=== PATIENT | female | born 1995 | race Caucasian/White ===

== ENCOUNTER 2017-05-09 16:26 | Emergency (ER) | payer OTHER ==
[2017-05-09 16:42] VITALS: TEMP 97.9; BMI 24.4
--- NOTE | 2017-05-09 16:42 | PDOC ---
Rapid Medical Evaluation Medical Evaluation: Allergies Allergy/AdvReac Type Severity Reaction Status Date / Time No Known Allergies Allergy Verified 09/15/13 03:56 05/09/17 16:35 I performed a brief in-person evaluation of this patient. The patient presents with a chief complaint of: intermittent pelvic pain with spotting for past 2 weeks. Patient had mirena in removed it herself 2 days ago, since then pelvic pain and heavy vaginal bleeding. Took no medication so far today Pertinent physical exam findings: NAD unlabored breathing mild tenderness over mid suprapubis I have ordered the following: urine cbc with diff analgesia The patient will proceed to the Ed for further evaluation <Fany Martinez - Last Filed: 05/09/17 16:35> Medical Evaluation: Allergies Allergy/AdvReac Type Severity Reaction Status Date / Time acetaminophen [From Vicodin] Allergy Rash Verified 05/09/17 16:40 hydrocodone bitartrate Allergy Rash Verified 05/09/17 16:40 [From Vicodin] Vital Signs Temp Pulse Resp BP Pulse Ox 97.9 F 74 19 111/61 100 05/09/17 16:40 05/09/17 16:40 05/09/17 16:40 05/09/17 16:40 05/09/17 16:40 <Divya Kim - Last Filed: 05/09/17 17:52> Time Seen by Provider: 05/09/17 16:34 Discharge Disposition <Fany Martinez - Last Filed: 05/09/17 16:35> <Divya Kim - Last Filed: 05/09/17 17:52> - Referrals Referrals: Zahira Zhou MD [Primary Care Provider] - - Patient Instructions - Post Discharge Activity
[2017-05-09 17:00] LABS: BASOPHIL 0.2 % (0-2.0); EOSINOPHIL 3.7 % (0-4.5); MCH 29.6 pg (25.7-33.7); MCHC 33.2 g/dl (32.0-36.0); MEAN CELL VOLUME 89.2 fl (80-96); MEAN PLT VOLUME 9.1 fl (7.5-11.1); NEUTROPHILS 52.5 % (42.8-82.8); PLATELET COUNT 214 K/MM3 (134-434); WHITE BLOOD COUNT 4.5 K/mm3 (4.0-10.0)
[2017-05-09 17:29] LABS: URINE APPEARANCE TURBID; URINE BILIRUBIN NEGATIVE (NEGATIVE); URINE BLOOD 3+ (NEGATIVE); URINE COLOR RED; URINE GLUCOSE (UA) NEGATIVE (NEGATIVE); URINE KETONE NEGATIVE (NEGATIVE); URINE NITRITE NEGATIVE (NEGATIVE); URINE UROBILINOGEN NEGATIVE mg/dL (0.2-1.0)
[2017-05-09 17:38] LABS: URINE PROTEIN 2+ (NEGATIVE)
--- NOTE | 2017-05-09 18:04 | PDOC ---
History of Present Illness - General Chief Complaint: Vaginal Bleeding Stated Complaint: PAIN,VAG. BLEEDING Time Seen by Provider: 05/09/17 16:34 History Source: Patient Exam Limitations: No Limitations - History of Present Illness Initial Comments: This is a 22 YOF with complex medical history of PCOS (Mirena IUD placed 1.5 years ago to regular hormones), uterine fibroids, newly diagnosed brain lesion which is being worked up currently, sleeve gastrectomy, liver disease, lumbar spinal surgery and bulging discs, asthma, anxiety, and depression who p/w heavy bright red vaginal bleeding for the past day. She is concerned that she soaked a whole pack of large panty liners last night (#40). She pulled out her own IUD two days ago because she has been experiencing suprapubic pain over the past two weeks and was not going to be able to see her PCP until Friday. She had no bleeding immediately subsequent to pulling it out, and she actually had relief of her suprapubic pain after pulling it out (from 7/10 for the past 2 weeks to 5 /10 after removal). The suprapubic pain feels like cramping with sharp twinges and radiates to her left back. She has taken Tylenol without relief. She additionally has had lightheadedness, hematuria, and nausea, but she denies any fever, chills, vomiting, cough, sore throat, or other symptoms. She has unchanged baseline vaginal discharge for which she always uses panty liners. Past History - Past Medical History Allergies/Adverse Reactions: Allergies Allergy/AdvReac Type Severity Reaction Status Date / Time acetaminophen [From Vicodin] Allergy Rash Verified 05/09/17 16:40 hydrocodone bitartrate Allergy Rash Verified 05/09/17 16:40 [From Vicodin] Home Medications: Ambulatory Orders Albuterol Sulfate Inhaler - [Ventolin Hfa *Inhaler*] 1 - 2 inh IH PRN PRN Escitalopram Oxalate [Lexapro] 20 mg PO DAILY 06/08/12 Esomeprazole Mag Trihydrate [Nexium] 40 mg PO DAILY 06/08/12 Hydroxyzine Pamoate [Vistaril] 25 mg PO DAILY 06/08/12 Salmeterol/Fluticasone [Advair 500Mcg/50Mcg] 1 inh PO BID 06/08/12 Oxymetazoline HCl [Afrin] 15 ml NS DAILY #1 spray 09/15/13 Budesonide/Formeterol Fumarate [SYMBICORT 80/4.5mcg -] 1 inh PO DAILY 05/09/17 Cephalexin Monohydrate [Keflex -] 500 mg PO BID 5 Days #10 capsule 05/09/17 Clonazepam [Klonopin -] 4 mg PO DAILY 05/09/17 Gabapentin 100 mg PO DAILY 05/09/17 Loratadine [Claritin] 10 mg PO DAILY 05/09/17 Lovastatin 40 mg PO DAILY 05/09/17 Metoprolol Tartrate 12.5 mg PO DAILY 05/09/17 Oxycodone HCl/Acetaminophen [Percocet 5-325 mg Tablet] 1 tab PO Q4H PRN #3 tablet MDD 1 05/09/17 Quetiapine Fumarate [Seroquel] 250 mg PO DAILY 05/09/17 Topiramate [Topamax] 100 mg PO DAILY 05/09/17 Zolpidem Tartrate [Ambien] 10 mg PO HS 05/09/17 Cardiac Disorders: Yes (mitral valve prolapse) - Immunization History Immunization Up to Date: Yes - Suicide/Smoking/Psychosocial Hx Smoking Status: No Smoking History: Never smoked Number of Cigarettes Smoked Daily: 1 Review of Systems - Review of Systems Constitutional: No: Chills, Fever, Unexplained wgt Loss HEENTM: No: Nose Congestion, Throat Pain Respiratory: No: Cough, Shortness of Breath Cardiac (ROS): No: Chest Pain, Palpitations ABD/GI: Yes: Diarrhea (chronic), Nausea. No: Constipated, Vomiting : Yes: Hematuria, Other (vaginal bleeding). No: Burning, Dysuria Musculoskeletal: Yes: Back Pain (left lower). No: Neck Pain Integumentary: No: Bruising, Rash Neurological: Yes: Dizziness (lightheaded). No: Headache, Numbness, Tingling, Weakness Endocrine: No: Unexplained Weight Gain, Unexplained Weight Loss *Physical Exam - Vital Signs Last Vital Signs Temp Pulse Resp BP Pulse Ox 97.9 F 74 19 111/61 100 05/09/17 16:40 05/09/17 16:40 05/09/17 16:40 05/09/17 16:40 05/09/17 16:40 - Physical Exam General Appearance: Yes: Nourished, Appropriately Dressed, Mild Distress, Other (anxious but pleasant young adult female who is in mild distress worsened with repositioning, accompanied by her mother who is very attentive, patient answers appropriately but does become confused with some questions such as medication and medical history, also becomes overwhelmed when multiple staff members are present for interview but converses well with one interviewer) HEENT: positive: EOMI, RANJEET, Normal ENT Inspection, Normal Voice, Hearing Grossly Normal, Other (multiple facial piercings). negative: Pale Conjunctivae , Scleral Icterus (R), Scleral Icterus (L), Nasal Congestion Neck: positive: Trachea midline, Supple. negative: Tender, Rigid Respiratory/Chest: positive: Lungs Clear, Normal Breath Sounds, Other (multiple tattoos to anterior chest wall). negative: Respiratory Distress, Crackles, Rhonchi, Stridor, Wheezing Cardiovascular: positive: Regular Rhythm, Regular Rate. negative: Edema, JVD, Murmur, Tachycardia, Systolic Murmur Female Pelvic Exam: positive: cervical os closed, adnexal tenderness (bilateral) , vaginal bleeding (moderate amount of medium-red blood without clots), other ( adnexal fullness on bimanual exam). negative: CMT, discharge, lesions Gastrointestinal/Abdominal: positive: Normal Bowel Sounds, Soft. negative: Tender, Organomegaly, Pulsatile Mass, Guarding Musculoskeletal: positive: Normal Inspection. negative: Decreased Range of Motion, Vertebral Tenderness Extremity: positive: Normal Capillary Refill, Normal Inspection, Normal Range of Motion. negative: Tender, Cyanosis Integumentary: positive: Normal Color, Dry, Warm. negative: Erythema, Rash, Bruising Neurologic: positive: law examiner II-XII NML intact (grossly), Fully Oriented, Alert, Normal Mood/Affect, Normal Response, Motor Strength 5/5 ED Treatment Course - LABORATORY CBC & Chemistry Diagram: 05/09/17 16:50 - ADDITIONAL ORDERS Additional order review: Laboratory Results 05/09/17 05/09/17 17:10 17:10 Urine Color Red Urine Appearance Turbid Urine pH 7.0 D Ur Specific [place] 1.018 Urine Protein 2+ H Urine Glucose (UA) Negative Urine Ketones Negative Urine Blood 3+ H Urine Nitrite Negative Urine Bilirubin Negative Urine Urobilinogen Negative Urine HCG, Qual Negative 05/09/17 16:50 RBC 4.45 MCV 89.2 MCHC 33.2 RDW 14.0 MPV 9.1 Neutrophils % 52.5 Lymphocytes % 36.0 D Monocytes % 7.6 Eosinophils % 3.7 Basophils % 0.2 Medical Decision Making - Medical Decision Making 22 YOF with PCOS and uterine fibroid who pulled her IUD out 2d ago and has heavy vaginal bleeding and abdominal pain. On exam she has suprapubic tenderness, on pelvic she has moderate blood, os closed, no obvious cervical injury. +Adnexal fullness and tenderness bilaterally but no CMT. DDX IBNLT cervical injury, fibroid bleeding, menorrhagia with dysmenorrhea, UTI with hematuria, PID, etc. Ordered is UA cx, CBCD, CMP, cervical swab cultures, hCG. 05/09/17 18:45 Blood labs are non-directive, hCG negative, patient is not anemic. Urine notable for blood and protein, awaiting micro. Based on pelvic exam adnexal tenderness and fullness will order pelvic US. Patient's care is signed out to Dr. Layne at the end of my shift. *DC/Admit/Observation/Transfer Diagnosis at time of Disposition: Cystitis - Discharge Dispostion Disposition: HOME Condition at time of disposition: Improved Admit: No - Prescriptions Prescriptions: Cephalexin Monohydrate [Keflex -] 500 mg PO BID 5 Days #10 capsule Oxycodone HCl/Acetaminophen [Percocet 5-325 mg Tablet] 1 tab PO Q4H PRN #3 tablet MDD 1 PRN Reason: abdominal pain - Referrals Referrals: Zahira Zhou MD [Primary Care Provider] - - Patient Instructions Additional Instructions: We believe that you may have an infection of your urine as your ultrasound didn' t show anything else concerning. The bleeding from your vagina was most likely from your IUD that you pulled out. Please follow up with your fire control assistant to have it evaluated further. Please return to the ED if your pain gets worse despite the use of the keflex antibiotics. Please take half of a percocet every 4-6 hours as needed and take your Keflex twice per day for the next 5 days. - Post Discharge Activity
--- NOTE | 2017-05-09 18:05 | PDOC ---
Attending Attestation - HPI HPI: 05/09/17 18:32 22 y.o female, with significant past medical history of PCOS, uterine fibroids, sleeve gastrectomy, anxiety, depression, insomnia, who presents to the emergency room complaining of 1 day of heavy vaginal bleeding s/p self-removal of Mirena device 2 days ago. <Mami Conklin - Last Filed: 05/09/17 18:32> - Resident Resident Name: Divya Kim - ED Attending Attestation I have performed the following: I have examined & evaluated the patient, The case was reviewed & discussed with the resident, I agree w/resident's findings & plan, Exceptions are as noted - Physicial Exam PE: 05/09/17 23:28 Patient is awake and alert, well-nourished, afebrile, hemodynamically stable EXAMINATION CONSTITUTIONAL: Well-appearing; well-nourished; in no apparent distress EYES: PERRL; EOM intact ENMT: External appears normal; normal oropharynx NECK: Supple; non-tender; no cervical lymphadenopathy CARD: Normal S1, S2; no murmurs, rubs, or gallops RESP: Normal chest excursion with respiration; breath sounds clear and equal bilaterally; no wheezes, rhonchi, or rales ABD: Soft, non-distended; + mild to moderate left lower quadrant and suprapubic tenderness to palpation, minimal right lower pelvic tenderness to palpation without guarding or rebound; obturator/psoas signs are negative, Rovsing sign is negative, there is no CVA tenderness bilaterally, no palpable organomegaly, no palpable hernias EXT: Normal ROM in all four extremities; non-tender to palpation; distal pulses intact SKIN: Warm, dry, no rash NEURO: No focal neurological deficiencies. - Medical Decision Making 05/09/17 23:30 Patient is a 22-year-old female with history of PTSD, depression, anxiety, insomnia presents the ER with vaginal bleeding and lower abdominal pain after removing her IUD. Patient also endorses history of urinary frequency over the past week. In the ER, patient is afebrile and nontoxic appearing. CBC is within normal limit without evidence of leukocytosis. Urinalysis reveals numerous wbc' s and more than 2000 RBCs. Transvaginal ultrasound shows thickened endometrial stripe and bilateral ovarian follicles without evidence of torsion or TOA. I suspect cystitis. Patient is unlikely to have acute appendicitis or PID at this time. GC/chlamydia probe is pending. We'll administer Keflex will discharge with by mouth Keflex for treatment of suspected cystitis. Will give abdominal pain precautions. <Parish Almaraz - Last Filed: 05/09/17 23:32>
[2017-05-09 18:43] VITALS: BP 108/50; PULSE 59
[2017-05-09 18:45] LABS: CALCIUM OXALATE CRYSTALS MANY /hpf (NONE SEEN); URINE BACTERIA MODERATE /hpf (NONE SEEN); URINE RBC 2434 /hpf (0-3); URINE WBC 144 /hpf (3-5)
[2017-05-09 19:26] LABS: URINE LEUK ESTERASE Negative (NEGATIVE)
[2017-05-09] MEDS ORDERED: KETOROLAC TROMETHAMINE 15 MG/ML VIAL IVPUSH ONE (21:02)
[2017-05-09] MEDS ORDERED: KETOROLAC TROMETHAMINE 15 MG/ML VIAL ONE (21:09)
--- NOTE | 2017-05-09 22:06 | PDOC ---
*Physical Exam - Vital Signs Last Vital Signs Temp Pulse Resp BP Pulse Ox 97.9 F 59 L 18 108/50 100 05/09/17 16:40 05/09/17 18:30 05/09/17 18:30 05/09/17 18:30 05/09/17 18:30 ED Treatment Course - LABORATORY CBC & Chemistry Diagram: 05/09/17 16:50 - ADDITIONAL ORDERS Additional order review: Laboratory Results 05/09/17 05/09/17 17:10 17:10 Urine Color Red Urine Appearance Turbid Urine pH 7.0 D Ur Specific [place] 1.018 Urine Protein 2+ H Urine Glucose (UA) Negative Urine Ketones Negative Urine Blood 3+ H Urine Nitrite Negative Urine Bilirubin Negative Urine Urobilinogen Negative Ur Leukocyte Esterase Negative Urine WBC (Auto) 144 Urine RBC (Auto) 2434 Ur Epithelial Cells Few Calcium Oxalate Crystal Many Urine Bacteria Moderate Urine HCG, Qual Negative 05/09/17 16:50 RBC 4.45 MCV 89.2 MCHC 33.2 RDW 14.0 MPV 9.1 Neutrophils % 52.5 Lymphocytes % 36.0 D Monocytes % 7.6 Eosinophils % 3.7 Basophils % 0.2 - Medications Given in the ED: ED Medications Discontinued Medications Generic Name Dose Route Start Last Admin Trade Name Freq PRN Reason Stop Dose Admin Ketorolac Tromethamine 15 mg 05/09/17 21:02 05/09/17 21:17 Toradol Injection - IVPUSH 05/09/17 21:03 15 mg ONCE ONE Administration Medical Decision Making - Medical Decision Making Abdominal US negative and lower abdominal pain has improved since admission. Her abdominal pain is most likely secondary to cystitis given her suprapubic tenderness. No RLQ tenderness, not concerned for appendicitis. Wrote for 500 Keflex BID and 3 percocet 5 that she is instructed to split in half. I discussed the findings with the patient and she agrees that she will follow up with her deputy chief sheriff in a few days. 05/09/17 21:51 *DC/Admit/Observation/Transfer Diagnosis at time of Disposition: Cystitis - Discharge Dispostion Disposition: HOME Condition at time of disposition: Improved Admit: No - Prescriptions Prescriptions: Cephalexin Monohydrate [Keflex -] 500 mg PO BID 5 Days #10 capsule Oxycodone HCl/Acetaminophen [Percocet 5-325 mg Tablet] 1 tab PO Q4H PRN #3 tablet MDD 1 PRN Reason: abdominal pain - Referrals Referrals: Zahira Zhou MD [Primary Care Provider] - - Patient Instructions Additional Instructions: We believe that you may have an infection of your urine as your ultrasound didn' t show anything else concerning. The bleeding from your vagina was most likely from your IUD that you pulled out. Please follow up with your deputy chief sheriff to have it evaluated further. Please return to the ED if your pain gets worse despite the use of the keflex antibiotics. Please take half of a percocet every 4-6 hours as needed and take your Keflex twice per day for the next 5 days. - Post Discharge Activity
[2017-05-09] MEDS ORDERED: CEPHALEXIN MONOHYDRATE 500 MG CAPSULE (UD) PO ONE (22:18)
[2017-05-09] MEDS ORDERED: CEPHALEXIN MONOHYDRATE 250 MG CAPSULE (FP) ONE (22:29)
== END 2017-05-09 22:56 | disposition home or self-care (01) ==
LOC: JER 16:26
PROC: 3E0333Z Introduction of Anti-inflammatory into Peripheral Vein, Percutaneous Approach (ICD-10-PCS; principal; 2017-05-09)
DX: N30.01 Acute cystitis with hematuria (principal); F41.8 Other specified anxiety disorders; F43.10 Post-traumatic stress disorder, unspecified; G47.00 Insomnia, unspecified
CPT/HCPCS: 36415; 76830-TC; 76856-TC; 81003; 81015; 84703; 85025; 87491; 87591; 87661; 96374; 99282-25

== ENCOUNTER 2018-02-23 13:08 | Emergency (ER) | payer OTHER ==
[2018-02-23 13:18] VITALS: TEMP 98.6; BMI 28.8
--- NOTE | 2018-02-23 14:01 | PDOC ---
Attending Attestation - HPI HPI: Patient is a 23 year old female, with a PMHx of PCOS, uterine fibroids, ectopic pregnancies, sleeve gastrectomy, anxiety, depression, insomnia, who presents with 2 days of lower pelvic and suprabic pain. Patient states that she feels what she describes as a "tight" sensation when she pees with light tripathi-tinged spotting, states her pain is worse when bending over, and rates 10/10. Patient also notes that back in September of 2017, she had an IUD placement in [facility]. Patient notes that her LMP was January 19 and states her period is late. She is concerned about a possible ectopic. She denies any burning or itching when she urinates. <Katherine Patino - Last Filed: 02/23/18 14:54> - Resident Resident Name: Shashi Krishnan - ED Attending Attestation I have performed the following: I have examined & evaluated the patient, The case was reviewed & discussed with the resident, I agree w/resident's findings & plan, Exceptions are as noted - Physicial Exam PE: 02/23/18 16:05 Agree with residents PE - Medical Decision Making 02/23/18 16:07 23 years old past medical history significant for PCO S uterine fibroids ectopic sleeve gastrectomy anxiety depression and insomnia presents with 2 day history of lower pelvic pain. Benign abdominal examination. Patient not transvaginal ultrasound with no acute pathology noted Now patient requesting HIV examination as well as testing for GC chlamydia and BV We'll send out cultures HIV rapid await results and dispo to follow-up with her GYN PHYSICIAN. <Jayro Bocanegra - Last Filed: 02/23/18 16:07>
[2018-02-23] MEDS ORDERED: ACETAMINOPHEN 500 MG TABLET (FP) PO ONE (14:10)
[2018-02-23 14:32] LABS: BASO % 0.6 % (0-2.0); EOS % 3.7 % (0-4.5); HEMATOCRIT 39.8 % (32.4-45.2); LYMPH % 45.5 % (8-40); MCH 28.4 pg (25.7-33.7); MCHC 32.8 g/dl (32.0-36.0); MEAN CELL VOLUME 86.6 fl (80-96); MEAN PLT VOLUME 9.1 fl (7.5-11.1); MONO % 7.9 % (3.8-10.2); NEUT % 42.3 % (42.8-82.8); PLATELET COUNT 224 K/MM3 (134-434); RBC 4.59 M/mm3 (3.60-5.2); RDW 16.2 % (11.6-15.6); WHITE BLOOD COUNT 6.5 K/mm3 (4.0-10.0)
[2018-02-23] MEDS ORDERED: ACETAMINOPHEN 325 MG TABLET (FP) ONE (14:32)
[2018-02-23 14:42] LABS: HCG,QUALITATIVE URINE Negative
[2018-02-23 14:49] LABS: URINE APPEARANCE CLOUDY; URINE BILIRUBIN NEGATIVE (<2.0 mg/dL); URINE COLOR YELLOW; URINE GLUCOSE (UA) NEGATIVE (NEGATIVE); URINE KETONE NEGATIVE (NEGATIVE); URINE LEUK ESTERASE NEGATIVE (NEGATIVE); URINE NITRITE POSITIVE (NEGATIVE); URINE PROTEIN NEGATIVE (NEGATIVE); URINE UROBILINOGEN NEGATIVE mg/dL (0.2-1.0)
[2018-02-23 14:53] LABS: ALBUMIN 4.1 g/dl (3.4-5.0); ANION GAP 6 MMOL/L (8-16); BILIRUBIN,TOTAL 0.4 mg/dL (0.2-1.0); BLOOD UREA NITROGEN 17 mg/dL (7-18); CALCIUM 8.9 mg/dL (8.5-10.1); CHLORIDE 110 mmol/L (98-107); CO2 26 mmol/L (21-32); CREATININE 0.9 mg/dL (0.55-1.3); GLUCOSE,RANDOM 87 mg/dL (74-106); POTASSIUM 4.1 mmol/L (3.5-5.1); SGOT/AST 17 U/L (15-37); SGPT/ALT 26 U/L (13-61); SODIUM 142 mmol/L (136-145)
[2018-02-23 14:54] LABS: ALK PHOS 84 U/L (45-117)
[2018-02-23 15:07] LABS: EPI CELLS RARE /HPF (FEW); URINE BACTERIA RARE /hpf (NONE SEEN); URINE MUCUS RARE; YEAST RARE
--- NOTE | 2018-02-23 16:38 | PDOC ---
History of Present Illness - General Chief Complaint: Pain Stated Complaint: ABDOMINAL PAIN Time Seen by Provider: 02/23/18 13:33 History Source: Patient, Old Records Exam Limitations: No Limitations - History of Present Illness Initial Comments: 23 y/o female presenting to [facility] ER via private auto complaining of two days of bilateral lower abdominal and suprapubic pain. Pt states the pain is constant and made worse by bending at the waist. Initially concerned it was menstrual cramping but denies active bleeding. Reports a h/o ectopic with IUD in place in 2016. Had second progesterone eluting IUD placed earlier this year by [facility]. Thinks the strings may be shorter today. Denies dysuria, urgency, frequency, hematuria, or vaginal discharge. No N /V/D. Pt is in a new monogamous sexual relationship with male partner. Requests STD check. Past History - Past Medical History Allergies/Adverse Reactions: Allergies Allergy/AdvReac Type Severity Reaction Status Date / Time acetaminophen [From Vicodin] Allergy Rash Verified 02/23/18 13:12 hydrocodone bitartrate Allergy Rash Verified 02/23/18 13:12 [From Vicodin] Home Medications: Ambulatory Orders Albuterol Sulfate Inhaler - [Ventolin Hfa *Inhaler*] 1 - 2 inh IH PRN PRN Escitalopram Oxalate [Lexapro] 20 mg PO DAILY 06/08/12 Esomeprazole Mag Trihydrate [Nexium] 40 mg PO DAILY 06/08/12 Salmeterol/Fluticasone [Advair 500Mcg/50Mcg] 1 inh PO BID 06/08/12 hydrOXYzine PAMOATE [Vistaril] 25 mg PO DAILY 06/08/12 Oxymetazoline HCl [Afrin] 15 ml NS DAILY #1 spray 09/15/13 Budesonide/Formeterol Fumarate [SYMBICORT 80/4.5mcg -] 1 inh PO DAILY 05/09/17 Cephalexin Monohydrate [Keflex -] 500 mg PO BID 5 Days #10 capsule 05/09/17 Gabapentin 100 mg PO DAILY 05/09/17 Loratadine [Claritin] 10 mg PO DAILY 05/09/17 Lovastatin 40 mg PO DAILY 05/09/17 Metoprolol Tartrate 12.5 mg PO DAILY 05/09/17 Oxycodone HCl/Acetaminophen [Percocet 5-325 mg Tablet] 1 tab PO Q4H PRN #3 tablet MDD 1 05/09/17 Quetiapine Fumarate [Seroquel] 250 mg PO DAILY 05/09/17 Topiramate [Topamax] 100 mg PO DAILY 05/09/17 Zolpidem Tartrate [Ambien] 10 mg PO HS 05/09/17 clonazePAM [Klonopin -] 4 mg PO DAILY 05/09/17 Cephalexin Monohydrate [Keflex -] 500 mg PO BID 5 Days #10 capsule 02/23/18 Phenazopyridine HCl [Pyridium -] 200 mg PO TID 2 Days #6 tablet 02/23/18 Asthma: Yes Cardiac Disorders: Yes (mitral valve prolapse) COPD: No - Immunization History Immunization Up to Date: Yes - Suicide/Smoking/Psychosocial Hx Smoking Status: No Smoking History: Never smoked Number of Cigarettes Smoked Daily: 1 Hx Alcohol Use: No Drug/Substance Use Hx: No Review of Systems - Review of Systems Able to Perform ROS?: Yes Is the patient limited Lithuanian proficient: No Constitutional: No: Chills, Diaphoresis, Fever HEENTM: No: Difficulty Swallowing Respiratory: No: Shortness of Breath Cardiac (ROS): No: Chest Pain, Syncope ABD/GI: Yes: See HPI, Abdominal cramping. No: Constipated, Diarrhea, Nausea, Rectal Bleeding, Vomiting, Tarry Stools : No: Burning, Dysuria, Discharge, Frequency, Flank Pain, Hematuria, Incontinence Musculoskeletal: No: Back Pain Integumentary: No: Bruising, Erythema Neurological: No: Weakness Hematologic/Lymphatic: No: Easy Bleeding, Easy Bruising *Physical Exam - Vital Signs Last Vital Signs Temp Pulse Resp BP Pulse Ox 98.6 F 89 18 116/59 99 02/23/18 13:12 02/23/18 13:12 02/23/18 13:12 02/23/18 13:12 02/23/18 13:12 - Physical Exam Comments: Constitutional: Well-developed, well-nourished female in no acute distress. Found walking towards exam room without assistance. Alert and oriented x4. Answered all questions appropriately and completely. Speech was non-labored, non -pressured. HEENT: Normocephalic. No obvious external signs of trauma. Hearing grossly normal. No nasal discharge. Neck is supple, trachea is midline. Cardiovascular: Regular rate and regular rhythm. No murmur, rubs, clicks, or gallops. Peripheral pulses: Radial pulses full. Respiratory: Breathing unlabored. Equal chest rise and fall. Clear to auscultation bilaterally. No stridor, no wheezing, no rhonchi. Gastrointestinal: abdomen is subjectively tender in RLQ and LLQ without grimace , rebound, or guarding; other ford soft and non-distended. No hepatosplenemegaly. No pulsatile masses. No overlying skin lesions or obvious signs of trauma. Neuro: Alert and oriented. Moving all four extremities spontaneously. Gait normal. Skin: Warm, dry, and intact. No bruising, rashes, or other lesions. No palpable nodules. Lymphatics: No cervical, supraclavicular, epitrochlear or inguinal nodes palpated. : No R or L CVA tenderness. Psych: Affect: appropriate. Mood: normal. Female Pelvic: External genitalia unremarkable. Speculum exam with normal appearing whitish vaginal discharge. Vaginal wall mucosa is unremarkable. Cervix visualized and is unremarkable (closed in appearance without any protruding material). Bimanual exam without cervical motion tenderness, adnexal tenderness or any masses appreciated. RN chaperoned exam. ED Treatment Course - LABORATORY CBC & Chemistry Diagram: 02/23/18 14:20 02/23/18 14:20 - ADDITIONAL ORDERS Additional order review: Laboratory Results 02/23/18 02/23/18 14:30 14:20 Sodium 142 Potassium 4.1 Chloride 110 H Carbon Dioxide 26 Anion Gap 6 L BUN 17 Creatinine 0.9 Creat Clearance w eGFR > 60 Random Glucose 87 Calcium 8.9 Total Bilirubin 0.4 AST 17 ALT 26 Alkaline Phosphatase 84 Total Protein 8.0 Albumin 4.1 Urine Color Yellow Urine Appearance Cloudy Urine pH 7.0 Ur Specific [place] 1.014 Urine Protein Negative Urine Glucose (UA) Negative Urine Ketones Negative Urine Blood Negative Urine Nitrite Positive Urine Bilirubin Negative Urine Urobilinogen Negative Ur Leukocyte Esterase Negative Urine WBC (Auto) 2 Urine RBC (Auto) None Ur Epithelial Cells Rare Urine Bacteria Rare Urine Mucus Rare Urine Yeast Rare Urine HCG, Qual Negative 02/23/18 14:20 RBC 4.59 MCV 86.6 MCHC 32.8 RDW 16.2 H MPV 9.1 Neutrophils % 42.3 L Lymphocytes % 45.5 H D Monocytes % 7.9 Eosinophils % 3.7 Basophils % 0.6 - Medications Given in the ED: ED Medications Discontinued Medications Generic Name Dose Route Start Last Admin Trade Name Bryanna PRN Reason Stop Dose Admin Acetaminophen 975 mg 02/23/18 14:10 02/23/18 14:32 Tylenol - PO 02/23/18 14:11 975 mg ONCE ONE Administration Medical Decision Making - Medical Decision Making *Reviewed vital signs, nursing notes, and prior visit documentation (if available). D/D: mittelschmerz, , ectopic , ovarian torsion, PID, cystitis , salpingitis, uterine fibroids, ovarian cyst, IUD migration. CBC unremarkable for anemia or leukocytosis. CMP unremarkable for electrolyte derangement. LFTs not elevated. UPreg negative. Low suspicion for ectopic or IUP. Transvaginal U/S: IUD in endometrial cavity. No evidence of ovarian torsion, uterine mass, small follicular cysts. No acute pathology. Discussed low suspicion for UTI even with positive nitrites without pyuria, as well as potential complications for antibiotic therapy. Offered to wait until urine culture results to make decision on abx, however pt requests abx prescription today. Pt requested HIV and STD screening. Labs obtained. Pt will call for results. Pt elected to not wait for results of HIV testing. *DC/Admit/Observation/Transfer Diagnosis at time of Disposition: Lower abdominal pain - Discharge Dispostion Disposition: HOME Condition at time of disposition: Good Decision to Admit order: No - Prescriptions Prescriptions: Cephalexin Monohydrate [Keflex -] 500 mg PO BID 5 Days #10 capsule Phenazopyridine HCl [Pyridium -] 200 mg PO TID 2 Days #6 tablet - Referrals Referrals: Arin Aviles MD [Primary Care Provider] - - Patient Instructions Printed Discharge Instructions: DI for Abdominal Pain-Adult Additional Instructions: Your ultrasound was normal today. Your IUD is in the right place. You may have a UTI. I have sent two prescriptions to your pharmacy. Take as directed on the package. You will need to call in three days for the rest of your lab results. The hospital should call with abnormal results. I would like you to follow up with your OBGYN provider within the next week. Go to the nearest emergency department if your condition worsens or you feel like you need additional emergency evaluation. Print Language: GREENLANDIC - Post Discharge Activity
[2018-02-23 16:50] VITALS: BP 103/74; PULSE 62
== END 2018-02-23 19:00 | disposition home or self-care (01) ==
LOC: JER 13:08
DX: I34.1 Nonrheumatic mitral (valve) prolapse (principal); J45.909 Unspecified asthma, uncomplicated; R10.30 Lower abdominal pain, unspecified
CPT/HCPCS: 36415; 76830-TC; 80053; 81003; 81015; 84703; 85025; 87086; 87186; 87389; 87491; 87591; 99282-25